=== PATIENT | male | born 1955 | race Hispanic/Latino ===

== ENCOUNTER → 2018-01-24 | Day surgery (SDC) | payer OTHER ==
[~2018-01-24] MED LIST: FENTANYL CITRATE/PF 100MCG/2 ML INJ ONE; HYOSCYAMINE SULFATE 0.5 MG/ML INJ ONE; LIDOCAINE HCL 2% LOCAL INJ 5 ML SDV VIAL INJ ONE; METOCLOPRAMIDE HCL 10 MG/2ML VIAL ONE; MIDAZOLAM HCL 2 MG/2 ML VIAL ONE; PROPOFOL IV EMULSION 10 MG/ML 50 ML VIAL ONE
--- NOTE | 2018-03-11 07:47 | Operative Report ---
DATE OF PROCEDURE: January 24, 2018 PROCEDURES PERFORMED 1. Esophagogastroduodenoscopy with esophageal dilatation and biopsies. 2. Colonoscopy with polypectomy. INDICATIONS FOR EGD: Dysphagia. INDICATIONS FOR COLONOSCOPY: Screening. MEDICATION: Patient was done under MAC. Please see anesthesiologist's note. PROCEDURE: With the patient in the left lateral decubitus position, the flexible fiberoptic Olympus gastroscope was introduced into the esophagus under direct visualization without any difficulty. The mucosa just above the GE junction was somewhat nodular and friable and that was biopsied. There was a tight stricture noted at the GE junction and that was dilated to size 48-M[place] Mont[place]or. The scope was then advanced with ease into the stomach traversing a small hiatal hernia. Mucosa overlying the antrum and the body revealed some patchy erythema and low-grade to moderate edema, and biopsies were obtained and sent to stain for H. pylori. The pylorus was of normal contour and shape. It was intubated with ease. The scope was advanced all the way to the 2nd portion of the duodenum. The junction of the bulb and the 2nd portion was somewhat stenotic, but was traversed with ease. It was also somewhat friable, but no obvious mass or lesion were noted. The scope was then withdrawn back into the stomach and retroflexed. Mucosa overlying the fundus and the cardia appeared to be within normal limits. The scope was then straightened out. It was subsequently withdrawn. Patient tolerated the procedure well. IMPRESSION 1. Distal esophagitis. 2. Mucosa somewhat nodular and friable just above the gastroesophageal junction, biopsied. 3. Esophageal stricture tight at the gastroesophageal junction dilated to size 48-M[place]ese Montemayor. 4. Small hiatal hernia. 5. Gastritis, biopsied. Biopsies sent to stain for Helicobacter pylori. 6. Junction of bulb and 2nd portion somewhat stenotic and friable. PLAN: Follow up histology. Initiate Protonix 40 mg 1 p.o. q.a.m. a.c. Patient will need a followup EGD after 2 months of therapy. Patient was then turned around. After adequate lubrication of the anal canal, a flexible fiberoptic Olympus colonoscope was inserted into the rectum with ease and advanced all the way to the cecum. It was then withdrawn slowly. Mucosa overlying the cecum, ascending colon and transverse colon appeared to be within normal limits. One polyp was snared from the descending colon. Two polyps were snared and 4 polyps were hot biopsied from the sigmoid colon. Minimal diverticulosis was noted in the sigmoid colon. Four polyps were hot biopsied from the rectum. The scope was then retroflexed into the distal rectum and small internal hemorrhoids were noted, none of which was actively bleeding. The scope was then straightened out. It was subsequently withdrawn. Patient tolerated the procedure well. IMPRESSION 1. Descending colon polyp, snared. 2. Diverticulosis, minimal. 3. Sigmoid colon polyps times 6, 2 snared and 4 hot biopsied. 4. Rectal polyps times 4, hot biopsied. 5. Internal hemorrhoids, none actively bleeding. PLAN: Follow up histology. Initiate high-fiber and low-fat diet. Initiate high-fiber supplement. A total of 10 polyps were removed. Patient might benefit from a followup colonoscopy in 1-2 years. Job#: [id number] ELTON
== END | disposition home or self-care (01) ==
LOC: ENDO 08:10
PROVIDERS: ATTEND Internal Medicine Gastroenterology
DX: Z12.11 Encounter for screening for malignant neoplasm of colon (principal); D12.4 Benign neoplasm of descending colon; K62.1 Rectal polyp; K29.70 Gastritis, unspecified, without bleeding; K22.2 Esophageal obstruction; K22.10 Ulcer of esophagus without bleeding; K21.0 Gastro-esophageal reflux disease with esophagitis; K44.9 Diaphragmatic hernia without obstruction or gangrene; K57.30 Diverticulosis of large intestine without perforation or abscess without bleeding; K64.8 Other hemorrhoids; I10 Essential (primary) hypertension; F41.9 Anxiety disorder, unspecified; F17.210 Nicotine dependence, cigarettes, uncomplicated; Z01.810 Encounter for preprocedural cardiovascular examination; Z68.33 Body mass index [BMI] 33.0-33.9, adult
CPT/HCPCS: 43239; 43450; 45384; 45385; 93005; J1980; J2001; J2250; J2765; 45378

== ENCOUNTER → 2018-09-28 | Day surgery (SDC) | payer OTHER ==
[~2018-09-28] MED LIST changes: +ATORVASTATIN CA20 MG PO; +HYOSCYAMINE 0.125 MG TAB ONE; -HYOSCYAMINE SULFATE 0.5 MG/ML INJ ONE; -LIDOCAINE HCL 2% LOCAL INJ 5 ML SDV VIAL INJ ONE; +LISINOPRIL10 MG PO; +METFORMIN HCL500 MG PO; -METOCLOPRAMIDE HCL 10 MG/2ML VIAL ONE; +PROPOFOL IV EMULSION 10 MG/ML 20 ML VIAL ONE
[2018-09-28 11:45] VITALS: BP 116/63
--- NOTE | 2018-09-28 18:41 | Operative Report ---
DATE OF PROCEDURE: 09/28/2018 SURGEON: Kareem Joshua MD PROCEDURE PERFORMED: EGD with esophageal dilatation over a wire and biopsies and colonoscopy with polypectomy. INDICATIONS FOR EGD: Dysphagia to solids. INDICATIONS FOR COLONOSCOPY: Surveillance colonoscopy, personal history of numerous colon polyps. MEDICATIONS: The patient was done under MAC, please see Anesthesiologist's note. PROCEDURE IN DETAIL: With the patient in left lateral decubitus position, flexible fiberoptic Olympus gastroscope was introduced into the esophagus under direct visualization without any difficulty. Several erosions were noted in the distal esophagus. There was a tight stricture noted just above the GE junction. It could not be traversed with the scope and the stricture was then dilated to size #15 Savary over a wire. The scope was then advanced with ease into the stomach and mucosa overlying the antrum and the body revealed some patchy erythema. Pylorus was intubated with ease and the scope was advanced to the second portion of the duodenum. The junction of the bulb and the second portion appeared somewhat stenotic, nodular, and friable. Biopsies were obtained. The scope was then withdrawn back into the stomach and retroflexed mucosa overlying the fundus and cardia appeared to be within normal limits. The scope was then straightened out, was subsequently withdrawn. The patient tolerated the procedure well. IMPRESSION: 1. Distal erosive esophagitis. 2. Tight stricture just above GE junction dilated to size #15 Savary over a wire. 3. Gastritis, mild. 4. Junction of bulb and second portion somewhat stenotic, nodular, and friable, biopsied. PLAN: Follow up histology. Initiate Protonix 40 mg one p.o. q.a.m. a.c., Carafate 1 g p.o. a.c. t.i.d. and at bedtime. The patient will need a repeat EGD with dilatation in 3 to 4 weeks on therapy. Procedure #2: The patient was then turned around after adequate lubrication of the anal canal. A flexible fiberoptic Olympus colonoscope was inserted into the rectum with ease and advanced all the way to the cecum. Mucosa overlying the cecum appeared to be within normal limits. At approximately 8 mm sessile polypoid lesion was noted in the proximal ascending colon that was removed per snare electrocautery and site was hemoclipped. The rest of the ascending, transverse, and descending appeared to be within normal limits. One polyp was snared from the sigmoid colon. Two polyps were snared, one polyp was hot biopsied from the rectum. The scope was then retroflexed into the distal rectum and small internal hemorrhoids were noted. None of which was actively bleeding. The scope was then straightened out. It was subsequently withdrawn. The patient tolerated the procedure well. IMPRESSION: 1. Ascending colon polyp snared and site hemoclipped. 2. Sigmoid colon polyp snared. 3. Rectal polyps x3, two snared and one hot biopsied. 4. Internal hemorrhoids, none actively bleeding. PLAN: Follow up histology. Initiate high-fiber, low-fat diet. Initiate high-fiber supplement. The patient might benefit from a followup colonoscopy in 3 years. MD SHAYAN Early/ANTON /[id number]
== END | disposition home or self-care (01) ==
LOC: OR 07:11
PROVIDERS: ATTEND Internal Medicine Gastroenterology
DX: K22.2 Esophageal obstruction (principal); D12.2 Benign neoplasm of ascending colon; K62.1 Rectal polyp; K29.70 Gastritis, unspecified, without bleeding; K22.10 Ulcer of esophagus without bleeding; K21.9 Gastro-esophageal reflux disease without esophagitis; K31.89 Other diseases of stomach and duodenum; K64.8 Other hemorrhoids; E11.9 Type 2 diabetes mellitus without complications; I10 Essential (primary) hypertension; R00.1 Bradycardia, unspecified; F41.9 Anxiety disorder, unspecified; R05 Cough; F17.210 Nicotine dependence, cigarettes, uncomplicated; Z01.810 Encounter for preprocedural cardiovascular examination; Z79.84 Long term (current) use of oral hypoglycemic drugs; Z68.33 Body mass index [BMI] 33.0-33.9, adult
CPT/HCPCS: 36415; 43239; 43248; 45384; 45385; 82948; 93005; J2250; J2704 ×2; J3010; 43450; 45378